=== PATIENT | male | born 1985 | race Caucasian/White ===

== ENCOUNTER 2017-01-06 19:19 | Inpatient (IN) | payer BC ==
[2017-01-06 20:04] LABS: Hematocrit 46 % (42-52); Hemoglobin 15.5 g/dl (14.0-18.0); Mean Corpuscular HGB Conc 34 g/dl (31-36); Mean Corpuscular Hemoglobin 30 pg (27-31); Mean Corpuscular Volume 89 fL (80-94); Mean Platelet Volume 8 um3 (7.4-10.4); Red Blood Count 5.13 10^6/ul (4.0-5.4); Red Cell Distribution Width 13 % (10.5-15); White Blood Count 9.3 10^3/ul (3.5-10.8)
[2017-01-06 20:08] LABS: Urine Bilirubin Negative (Negative); Urine Glucose Negative (Negative); Urine Nitrite Negative (Negative)
[2017-01-06 20:20] LABS: ALT 40 U/L (7-52); AST 27 U/L (13-39); Albumin 4.8 g/dL (3.2-5.2); Alkaline Phosphatase 57 U/L (34-104); Anion Gap 11 mmol/L (2-11); Blood Urea Nitrogen 16 mg/dL (6-24); CO2 Carbon Dioxide 24 mmol/L (22-32); Calcium 9.9 mg/dL (8.6-10.3); Chloride 102 mmol/L (101-111); EGFR African American 81.8 (>60); EGFR Non-African American 63.6 (>60); Globulin 2.8 g/dL (2-4); Glucose 94 mg/dL (70-100); Potassium 3.8 mmol/L (3.5-5.0); Sodium 137 mmol/L (133-145); Total Protein 7.6 g/dL (6.4-8.9)
[2017-01-06 20:29] LABS: Acetaminophen < 15 mcg/mL; Alcohol < 10 mg/dL (<10); Salicylate < 2.50 mg/dL (<30)
[2017-01-06 20:29] LABS: Benzodiazepine Urine Screen None Detected (None Detect)
[2017-01-06 20:37] LABS: TSH (Thyroid Stimulating Horm) 1.97 mcIU/mL (0.34-5.60)
--- NOTE | 2017-01-07 01:42 | ED ---
Kota Page Angela, scribed for Jing Shankar MD on 01/06/17 at 1941 . Psychiatric Complaint - HPI Summary HPI Summary: This pt is a 31 y/o male BIBA presenting to [facility] c/o depression x2-3 weeks, with a SI plan today. Pt reports SI and has a plan but decided to call the [facility]. Pt states that he has been recently more depressed due to of her grandmother recently. He states he is under stress. Pt denies owing any guns at home. He states he lives with his , she is in [place] and works as a nurse. Pt notes drinking alcohol once to twice per week but denies drug use. - History Of Current Complaint Chief Complaint: EDMentalHealth Time Seen by Provider: 01/06/17 19:31 Hx Obtained From: Patient Onset/Duration: Lasting Weeks Timing: Constant Character: Depressed Aggravating Factor(s): Recent Stress, Other - of grandmother Has Suicidal: Reports: Thoughts, With A Plan Has Homicidal: Denies: Thoughts, With A Plan PMH/Surg Hx/FS Hx/Imm Hx Endocrine/Hematology History: Denies: Hx Diabetes Cardiovascular History: Denies: Hx Hypertension Psychiatric History: Reports: Hx Anxiety, Hx Depression Infectious Disease History: No Infectious Disease History: Denies: Traveled Outside the US in Last 30 Days - Family History Known Family History: Positive: Other - depression - Social History 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 [employer] Alcohol Use: Weekly Substance Use Type: Reports: None Hx Tobacco Use: No Smoking Status (MU): Never Smoked Tobacco Review of Systems Negative: Fever, Chills Eyes: Negative ENT: Negative Negative: Palpitations, Chest Pain Negative: Shortness Of Breath Negative: Abdominal Pain Genitourinary: Negative Musculoskeletal: Negative Skin: Negative Negative: Headache, Weakness Positive: Depressed All Other Systems Reviewed And Are Negative: Yes Physical Exam Triage Information Reviewed: Yes Vital Signs On Initial Exam: Initial Vitals Temp Pulse Resp BP Pulse Ox 97.7 F 89 16 154/92 100 01/06/17 19:23 01/06/17 19:23 01/06/17 19:23 01/06/17 19:23 01/06/17 19:23 Vital Signs Reviewed: Yes Appearance: Positive: Well-Appearing, No Pain Distress Skin: Positive: Warm, Skin Color Reflects Adequate Perfusion, Dry Eyes: Positive: EOMI, ALIDA ENT: Positive: Pharynx normal, TMs normal Neck: Positive: Supple, Nontender Respiratory/Lung Sounds: Positive: Clear to Auscultation, Breath Sounds Present. Negative: Rales, Rhonchi, Wheezes Cardiovascular: Positive: RRR. Negative: Murmur, Rub, Other - gallop Abdomen Description: Positive: Nontender, Soft. Negative: Distended, Guarding, Other: - rebound Bowel Sounds: Positive: Present Musculoskeletal: Positive: Strength/ROM Intact. Negative: Edema Left, Edema Right Neurological: Positive: Sensory/Motor Intact, Alert, Oriented to Person Place, Time, CN Intact II-III Psychiatric: Positive: Depressed Diagnostics - Vital Signs Vital Signs Temp Pulse Resp BP Pulse Ox 01/06/17 19:23 97.7 F 89 16 154/92 100 - Laboratory Lab Results: Lab Results 01/06/17 01/06/17 01/06/17 Range/Units 19:45 19:45 19:55 WBC 9.3 (3.5-10.8) 10^3/ul RBC 5.13 (4.0-5.4) 10^6/ul Hgb 15.5 (14.0-18.0) g/dl Hct 46 (42-52) % MCV 89 (80-94) fL MCH 30 (27-31) pg MCHC 34 (31-36) g/dl RDW 13 (10.5-15) % Plt Count 241 (150-450) 10^3/ul MPV 8 (7.4-10.4) um3 Neut % (Auto) 56.6 (38-83) % Lymph % (Auto) 33.1 (25-47) % Hanson % (Auto) 8.2 (1-9) % Eos % (Auto) 1.5 (0-6) % Baso % (Auto) 0.6 (0-2) % Absolute Neuts (auto) 5.3 (1.5-7.7) 10^3/ul Absolute Lymphs (auto) 3.1 (1.0-4.8) 10^3/ul Absolute Monos (auto) 0.8 (0-0.8) 10^3/ul Absolute Eos (auto) 0.1 (0-0.6) 10^3/ul Absolute Basos (auto) 0.1 (0-0.2) 10^3/ul Absolute Nucleated RBC 0.01 10^3/ul Nucleated RBC % 0.1 Sodium 137 (133-145) mmol/L Potassium 3.8 (3.5-5.0) mmol/L Chloride 102 (101-111) mmol/L Carbon Dioxide 24 (22-32) mmol/L Anion Gap 11 (2-11) mmol/L BUN 16 (6-24) mg/dL Creatinine 1.33 H (0.67-1.17) mg/dL Est GFR ( Amer) 81.8 (>60) Est GFR (Non-Af Amer) 63.6 (>60) BUN/Creatinine Ratio 12.0 (8-20) Glucose 94 (70-100) mg/dL Calcium 9.9 (8.6-10.3) mg/dL Total Bilirubin 0.50 (0.2-1.0) mg/dL AST 27 (13-39) U/L ALT 40 (7-52) U/L Alkaline Phosphatase 57 (34-104) U/L Total Protein 7.6 (6.4-8.9) g/dL Albumin 4.8 (3.2-5.2) g/dL Globulin 2.8 (2-4) g/dL Albumin/Globulin Ratio 1.7 (1-3) TSH 1.97 (0.34-5.60) mcIU/mL Urine Color Urine Appearance Urine pH (5-9) Ur Specific [place] (1.010-1.030) Urine Protein (Negative) Urine Ketones (Negative) Urine Blood (Negative) Urine Nitrate (Negative) Urine Bilirubin (Negative) Urine Urobilinogen (Negative) Ur Leukocyte Esterase (Negative) Urine Glucose (Negative) Salicylates < 2.50 (<30) mg/dL Urine Opiates Screen None detected (None Detect) Acetaminophen < 15 mcg/mL Ur Barbiturates Screen None detected (None Detect) Ur Phencyclidine Scrn None detected (None Detect) Ur Amphetamines Screen None detected (None Detect) U Benzodiazepines Scrn None detected (None Detect) Urine Cocaine Screen None detected (None Detect) U Cannabinoids Screen None detected (None Detect) Serum Alcohol < 10 (<10) mg/dL 01/06/17 Range/Units 19:55 WBC (3.5-10.8) 10^3/ul RBC (4.0-5.4) 10^6/ul Hgb (14.0-18.0) g/dl Hct (42-52) % MCV (80-94) fL MCH (27-31) pg MCHC (31-36) g/dl RDW (10.5-15) % Plt Count (150-450) 10^3/ul MPV (7.4-10.4) um3 Neut % (Auto) (38-83) % Lymph % (Auto) (25-47) % Hanson % (Auto) (1-9) % Eos % (Auto) (0-6) % Baso % (Auto) (0-2) % Absolute Neuts (auto) (1.5-7.7) 10^3/ul Absolute Lymphs (auto) (1.0-4.8) 10^3/ul Absolute Monos (auto) (0-0.8) 10^3/ul Absolute Eos (auto) (0-0.6) 10^3/ul Absolute Basos (auto) (0-0.2) 10^3/ul Absolute Nucleated RBC 10^3/ul Nucleated RBC % Sodium (133-145) mmol/L Potassium (3.5-5.0) mmol/L Chloride (101-111) mmol/L Carbon Dioxide (22-32) mmol/L Anion Gap (2-11) mmol/L BUN (6-24) mg/dL Creatinine (0.67-1.17) mg/dL Est GFR ( Amer) (>60) Est GFR (Non-Af Amer) (>60) BUN/Creatinine Ratio (8-20) Glucose (70-100) mg/dL Calcium (8.6-10.3) mg/dL Total Bilirubin (0.2-1.0) mg/dL AST (13-39) U/L ALT (7-52) U/L Alkaline Phosphatase (34-104) U/L Total Protein (6.4-8.9) g/dL Albumin (3.2-5.2) g/dL Globulin (2-4) g/dL Albumin/Globulin Ratio (1-3) TSH (0.34-5.60) mcIU/mL Urine Color Yellow Urine Appearance Clear Urine pH 6.0 (5-9) Ur Specific [place] 1.014 (1.010-1.030) Urine Protein Negative (Negative) Urine Ketones Trace H (Negative) Urine Blood Negative (Negative) Urine Nitrate Negative (Negative) Urine Bilirubin Negative (Negative) Urine Urobilinogen Negative (Negative) Ur Leukocyte Esterase Negative (Negative) Urine Glucose Negative (Negative) Salicylates (<30) mg/dL Urine Opiates Screen (None Detect) Acetaminophen mcg/mL Ur Barbiturates Screen (None Detect) Ur Phencyclidine Scrn (None Detect) Ur Amphetamines Screen (None Detect) U Benzodiazepines Scrn (None Detect) Urine Cocaine Screen (None Detect) U Cannabinoids Screen (None Detect) Serum Alcohol (<10) mg/dL Result Diagrams: 01/06/17 19:45 01/06/17 19:45 Lab Statement: Any lab studies that have been ordered have been reviewed, and results considered in the medical decision making process. Course/Dx - Course Course Of Treatment: pt with depression seen by mental health admitted in stable condition - Differential Dx/Clinical Impression Provider Diagnosis: Depression Discharge - Discharge Plan Condition: Stable Disposition: ADMITTED TO [facility] Referrals: No Primary Care Phys,NOPCP [Primary Care Provider] - The documentation as recorded by the Kota black Angela accurately reflects the service I personally performed and the decisions made by me, Jing Shankar MD.
[2017-01-07] MEDS ORDERED: Al Hydrox/Mg Hydrox/Simet LIQ* 30 ML UDC PO PRN (02:01)
[2017-01-07] MEDS ORDERED: Acetaminophen TAB* 325 MG PO PRN (02:01)
[2017-01-07] MEDS: Cetirizine* 10 MG TAB PO SCH (08:31)
[2017-01-07] MEDS: Fluticasone NASAL SPRAY 50MCG* 16 gm SPRAY BTL BOTH NARES SCH (08:31)
[2017-01-07] MEDS: Vitamin THERAPEUTIC TAB PO SCH (08:31)
[2017-01-07] MEDS ORDERED: Propranolol TAB* 10 MG PO PRN (11:30)
[2017-01-07] MEDS: FLUoxetine CAP* 20 MG PO SCH (12:03)
--- NOTE | 2017-01-07 16:04 | HP ---
DATE OF ADMISSION: 01/06/2017. SUPERVISING PSYCHIATRIST: Dr. Erick Lama * (dictated by LYDIA Jc ). JUSTIFICATION FOR ADMISSION: The patient reports increased depressive symptoms and vague suicidal ideation. He called the [facility] crisis line because he was tempted to harm himself and presented voluntarily to the emergency department. 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 He reports a history of increased depression symptoms since late this summer. He reports decreased energy, depressed mood, excessive guilt, difficulty falling asleep and decreased appetite. He endorses anxiety which is new for him. He states that he is anxious when presenting to students and crowds , and endorses generalized worry and decreased concentration. He went to [facility] and reported to the counselor that he recently punched a mirror and used a shard of glass to cut himself. He reports a history of self-harm and punching himself when upset in elementary and high school. He denies suicide attempts. He denies a history of violence or aggression. He reports he started graduate courses at [employer] in the Fall of 2015, he is pursuing his Masters in Industry and Labor relations, and reports that this is "going great" and denies academic problems. He states he has a tendency or over think and considers himself a perfectionist. He denies OCD symptoms. He denies eating disorder symptoms. He denies A/V hallucinations. He denies a history of manic or hypomanic periods. PAST PSYCHIATRIC HISTORY: He states he saw a psychologist and a counselor in high school. He denies prior psychiatric hospitalizations. He denies prior antidepressant or medications. He states that he was prescribed Clonazepam briefly while living in [place]. TRAUMA/ABUSE HISTORY: His grandmother recently. He was very close to her. He denies other trauma or abuse. PAST MEDICAL HISTORY: Seasonal allergies, eczema, asthma, rhabdomyolysis. He does not have a current primary care provider. He states that he has an appointment with a new provider upcoming in January; he does not recall the name of this person. He had an intake with psychiatric nurse practitioner Otto Kessler yesterday. She prescribed Viibryd and Propranolol, but he has not picked these up from the pharmacy yet. PAST SURGICAL HISTORY: Arthroscopy and surgical repair when a log crushed his leg. ALLERGIES: CEPHALOSPORINS, SULFA ANTIBIOTICS. FAMILY PSYCHIATRIC HISTORY: Anxiety in his mother. SOCIAL HISTORY: Boston states that he is primarily from [place], but he has moved around a lot. He has a twin brother named Phi who lives at home with his parents in [place] and he has a 24-year-old brother in [place] who is studying [employer] at [employer] as a PhD candidate. His undergrad is in Philosophy from [employer] in [place]. Prior to moving to [place], he was living in [place] and working for [employer]. He and his , Santa, in April 2014. She is a labor and delivery nurse at [employer]. He reports one alcoholic drink per week and denies other substance use. Boston denies or legal history. REVIEW OF SYSTEMS: Constitutional: Negative. Eyes: Negative. ENT: Negative. Cardiovascular: Negative. Respiratory: Negative. Gastrointestinal : Negative. Genitourinary: Negative. Musculoskeletal: Negative. Other other systems reviewed and are negative. PHYSICAL EXAMINATION APPEARANCE: Positive, well-appearing, no pain or distress. SKIN: Warm, dry, reflects adequate perfusion. MOST RECENT VITAL SIGNS: Temperature 98.9, pulse 79, respiration rate 16, O2 saturation 99 percent, blood pressure 120/76. Height 5'9", weight 182. HEENT: Eyes: EOMI, PERRLA. ENT: Pharynx normal. Tympanic membranes normal. NECK: Supple, nontender. RESPIRATORY: Clear to auscultation. Breath sounds present. CARDIOVASCULAR: Heart RRR. Pulses present bilaterally on upper and lower extremities. ABDOMEN: Soft, nontender. Bowel sounds present in all four quadrants. MUSCULOSKELETAL: Strength and ROM intact. NEUROLOGIC: Sensory motor intact. Alert and oriented times three. Cranial nerves intact II through XII. MENTAL STATUS EXAM: Boston is a 31-year-old male, moderate height and build, who appears stated age. He is adequately groomed, dressed in his own clothing. He is cooperative with interview and answers questions fully. He is alert and oriented times three. His concentration is fair. Memory is 3/3. His mood is "overwhelmed." Affect is blunted. Speech is normal rate, rhythm and volume , articulate. Thought process logical, coherent, mild thought poverty noted. Content of thought positive for vague SI. Denies phobias, rituals, delusions, or preoccupations. His insight is good. His judgment is good. His fund of knowledge is excellent. DIAGNOSES: AXIS I: Unspecified depressive disorder, bereavement, generalized anxiety disorder. AXIS II: Deferred. AXIS III: Asthma, mild, seasonal allergies, eczema. AXIS IV: Stressors related to recent of his grandmother and pressures of work and graduate studies. AXIS V: 55. PLAN: Admit to Adult Behavioral Services Unit on voluntary status. Code status is full. Place on 15 minute checks for safety. The patient is encouraged to participate in supportive milieu and individual sessions and psychoeducational groups. The patient is agreeable to a trial of Fluoxetine as Viibryd is non- formulary and likely difficult to be covered by insurance after discharge. Will start Propranolol b.i.d. for anxiety and Trazodone as needed for sleep. Will monitor for mood and thought content. Estimated length of stay is three to five days. Discharge planning will involve family involvement and outpatient providers. YARED FAN NP [id number]/[facility] #: [id number] JASON
[2017-01-07] MEDS ORDERED: traZODone TAB* 50 MG TAB PO PRN (21:00)
[2017-01-07] MEDS: diPHENhydraMINE PO* 50 MG PO PRN (21:27)
[2017-01-08] MEDS: FLUoxetine CAP* 20 MG PO SCH (09:04)
[2017-01-08] MEDS: Cetirizine* 10 MG TAB PO SCH (09:04)
[2017-01-08] MEDS: Fluticasone NASAL SPRAY 50MCG* 16 gm SPRAY BTL BOTH NARES SCH (09:04)
[2017-01-08] MEDS: Vitamin THERAPEUTIC TAB PO SCH (09:06)
--- NOTE | 2017-01-08 12:56 | PN ---
Subjective - Subjective Service Type: 31761 Hosp care 15 min low complexity Subjective: Dino is seen for weekend coverage. He is calm and polite. Feels less anxious and continues to deny any further SI. Patient is tolerating fluoxetine well with no noticeable untoward effects. He asks several future-oriented questions such as whether I can recommend a good psychiatrist or psychotherapist in the community. He has been going to groups and is visible on the unit; safe on all checks. Objective - Appearance Appearance: Well Developed/Nourished Dysmorphic Features: No Hygiene: Normal Grooming: Well Kept - Behavior Psychomotor Activities: Normal Exhibits Abnormal Movement: No - Attitude and Relatedness Attitude and Relatedness: Cooperative Eye Contact: Good - Speech Quality: Unpressured Latencies: Normal Quantity: Appropriate - Mood Patient's Decription of Mood: "Good" - Affect Observed Affect: Good Affect Consistent with: Euthymia - Thought Process Patient's Thought Process: Coherent Thought Content: No Passive Wish, No Suicidal Planning, No Homicidal Ideation, No Paranoid Ideation - Sensorium Experiencing Hallucinations: No, Sensorium is Clear Type of Hallucinations: Visual: No, Auditory: No, Command: No - Level of Consciousness Level of Consciousness: Alert Orientation: Yes Intact, Yes Orientated to Time, Yes Orientated to Place, Yes Orientated to Person - Impulse Control Impulse Control: Intact - Insight and Judgement Insight and Judgement: Good - Group Participation Particating in Group Activities: Yes - Medication Management Medication Management Adherence: Yes Assessment - Assessment Merits Inpatient Hospitalization: Consolidate Improvements, Pending Safe DC Plan Inpatient DSM-IV Dx: Major Depressive DO, single episode, severe without psychotic features Clinical Impression: 31 y.o. 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 Plan - Plan Treatment Plan: Name: DINO OTERO Birthdate: 1985 [id number] Patient started on scheduled fluoxetine and prn propranolol for anxiety. Adjusting to unit nicely. Denies SI. Future-oriented and wanting referral to outpatient resources. Continue to treat inpatient. Continued Medication Management: Start Medication Medications: Current Medications Acetaminophen (Tylenol Tab*) 650 mg PO Q4H PRN PRN Reason: PAIN or TEMP > 101 F Al Hydrox/Mg Hydrox/Simethicone (Maalox Plus*) 30 ml PO Q4H PRN PRN Reason: INDIGESTION Cetirizine HCl (Zyrtec*) 10 mg PO DAILY [facility] Last Admin: 01/08/17 09:04 Dose: 10 mg Diphenhydramine HCl (Benadryl Po*) 50 mg PO BEDTIME PRN PRN Reason: INSOMNIA/ALLERGIES Last Admin: 01/07/17 21:27 Dose: 50 mg Fluoxetine HCl (Prozac Cap*) 20 mg PO DAILY [facility] Last Admin: 01/08/17 09:04 Dose: 20 mg Fluticasone Propionate (Flonase Nasal [place] 50mcg*) 2 spray BOTH NARES DAILY [facility] Last Admin: 01/08/17 09:04 Dose: 2 spray Multivitamins (Theragran Tab*) 1 tab PO DAILY [facility] Last Admin: 01/08/17 09:06 Dose: Not Given Propranolol HCl (Inderal Tab*) 10 mg PO BID PRN PRN Reason: ANXIETY Last Admin: 01/07/17 12:03 Dose: 10 mg Trazodone HCl (Desyrel Tab*) 50 mg PO BEDTIME PRN PRN Reason: INSOMNIA - Discharge Plan Discharge Plan: Inpatient Hospitalization
[2017-01-08] MEDS: diPHENhydraMINE PO* 50 MG PO PRN (20:34)
[2017-01-09] MEDS: Cetirizine* 10 MG TAB PO SCH (09:03)
[2017-01-09] MEDS: FLUoxetine CAP* 20 MG PO SCH (09:03)
[2017-01-09] MEDS: Fluticasone NASAL SPRAY 50MCG* 16 gm SPRAY BTL BOTH NARES SCH (09:03)
[2017-01-09] MEDS: Vitamin THERAPEUTIC TAB PO SCH (09:03)
[2017-01-09] MEDS: diPHENhydraMINE PO* 50 MG PO PRN (20:53)
[2017-01-10 07:49] VITALS: BP 116/65
[2017-01-10] MEDS: Fluticasone NASAL SPRAY 50MCG* 16 gm SPRAY BTL BOTH NARES SCH (08:01)
[2017-01-10] MEDS: FLUoxetine CAP* 20 MG PO SCH (08:01)
[2017-01-10] MEDS: Cetirizine* 10 MG TAB PO SCH (08:01)
[2017-01-10] MEDS: Vitamin THERAPEUTIC TAB PO SCH (08:01)
--- NOTE | 2017-01-10 11:31 | PN ---
[facility]: Group Therapy Note - Service Type Service Type: 15995 Group Psychotherapy - Cognitive Behavioral Group Therapy ( CBT):Patient was attentive and participatory in CBT programming this morning, and remained in good behavioral control. Patient expressed positive insights regarding relevant treatment interventions and goals.
--- NOTE | 2017-01-10 14:35 | DS ---
CC: Otto Kessler NP* DATE OF ADMISSION: 01/06/2017. DATE OF DISCHARGE: 01/10/2017. SUPERVISING PSYCHIATRIST: Dr. Erick Lama* (dictated by LYDIA Cameron) . DISCHARGE DIAGNOSES: AXIS I: Major depressive disorder and social anxiety disorder. AXIS II: Deferred. AXIS III: asthma, seasonal allergies, eczema AXIS IV: Stressors related to graduate studies and personal relationships. AXIS V: 70. CONDITION AT THE TIME OF DISCHARGE: Improved. The patient reports he has benefited from hospitalization by being able to reorient himself and plan to decrease his workload and extracurricular activities. He states he is looking forward to having more time to himself and also to focus on his marriage. He identifies re-establishing a routine of coping skills. He reports that he had much family support and visitors including his card dealer while on the unit. He denies suicidal ideation. He is able to exhibit forward thinking and planning. His is present for discharge and she is agreeable to discharge planning. Questions were answered by myself and discharge instructions were given by nursing staff. MENTAL STATUS EXAM: The patient is a 31-year-old male, moderate height and build, who appears stated age. He is adequately groomed, dressed in his own clothing. He is cooperative and talkative. He is alert and oriented times three. His concentration is good. His memory is 3/3. His mood is "great." Affect is full. Speech is normal rate, rhythm and volume, and articulate. Thought process is logical, coherent, and goal-directed. Content of thought is negative for SI or SIB, preoccupations, or delusions. His insight is good. His judgment is good. His fund of knowledge is excellent. DISCHARGE INSTRUCTIONS TO PATIENT: A. Medications: The patient will continue Viibryd as prescribed by his outpatient practitioner and Propranolol. Both of these are ready for pick-up at [facility]. This advertising copywriter verified and sent an electronic prescription for Trazodone 50 mg p.o. at bedtime prn insomnia. B. Diet: Regular. C. Activity: Ambulation as tolerated. Tobacco cessation not applicable and there are no pending labs or diagnostic studies at the time of discharge. D. Follow-up care: The patient has an appointment with his psychiatric nurse practitioner, Otto Kessler this , the , at 3:00 p.m. shoe lay out planner Sofia Pat and Otto will coordinate in regards to identify an outpatient therapist in the community for [place]. He will follow- up with [id number] as needed for any medical issues. HOSPITAL COURSE: A. Reason for admission: The patient reported increased depressive symptoms and vague suicidal ideation. He called the [facility] [facility] crisis line because he was tempted to harm himself and presented voluntarily to the emergency department. B. Psychiatric treatment rendered: The patient was admitted to the Adult Behavioral Services on voluntary status. Code status was full. He was placed on 15 minute checks for safety. He was encouraged to participate in intensive milieu, individual sessions, and psychoeducational groups. The patient was agreeable to a trial of Fluoxetine. He had recently been prescribed Viibryd for the first time by his outpatient provider. This medication is non-formulary , so Fluoxetine was used as a substitution by this advertising copywriter. He was offered Propranolol b.i.d. prn anxiety, but did not take this medicine while hospitalized. He is encouraged to use as outpatient for performance anxiety and teaching requirements. He also trialed Trazodone as needed for sleep and reported efficacy. The patient fully participated in unit programming and he was pleasant and in behavioral control. He reported a positive effect from being in the hospital. He states he is also able to identify things in his life for which he is grateful. Observation was decreased to every 30 minutes and he was allowed staff pass and computer privileges. The patient requested to be discharged today, Tuesday, and his was in agreement with discharge plan. He is encouraged to return to the ED should symptoms worsen. Discharge planning included coordination with his psychiatric nurse practitioner, Otto Kessler. He will also work with her to identify a local therapist. The patient and were given discharge instructions by nursing staff and he left the unit with his . LYDIA CAMERON [id number]/[facility] #: [id number] JASON
== END 2017-01-10 12:35 | disposition home or self-care (01) | DRG 751 ==
LOC: ED 19:19 → BSU 01-07 01:40
PROVIDERS: ADMIT Psychiatry & Neurology Psychiatry; ATTEND Psychiatry & Neurology Psychiatry
DX: F32.2 Major depressive disorder, single episode, severe without psychotic features (principal); F40.10 Social phobia, unspecified; J45.909 Unspecified asthma, uncomplicated; L30.9 Dermatitis, unspecified
CPT/HCPCS: 36415; 80053; 80307; 80320; 80329; 81003; 84443; 85025; 90853; 99222; 99231; 99238; A9270-GY; G0480

== ENCOUNTER 2017-07-08 18:06 | Emergency (ER) | payer BC ==
[2017-07-08 18:20] VITALS: BP 123/84
--- NOTE | 2017-07-08 18:56 | UC ---
Abdominal Pain Male HPI - HPI Summary HPI Summary: c/o nausea and diarrhea after eating at the cafeteria on Tuesday night, He states he did not vomit, no fever and symptoms were improving on Tuesday but on he recurred with diarrhea. He still had loose stools this morning but states he took coffee, other than that he has been following a BRAT diet. He denies nausea, mucus or blood in stool. He noticed a small spotting in the toilet paper as he was wiping. - History of Current Complaint Chief Complaint: UCGI Stated Complaint: DIARRHEA,STOMACH DISCOMFORT Time Seen by Provider: 07/08/17 18:37 Hx Obtained From: Patient Onset/Duration: Sudden Onset, Lasting Days Severity Initially: Moderate Severity Currently: Mild Pain Intensity: 2 Location: Diffuse Radiates: No Character: Cramping Alleviating Factor(s): Spontaneous Resolution, Other - resolved then recurred a day ago, colics resolve with BM Associated Signs And Symptoms: Positive: Diarrhea - Risk Factors Testicular Torsion: Negative Cardiac Risk Factors: Negative - Allergies/Home Medications Allergies/Adverse Reactions: Allergies Allergy/AdvReac Type Severity Reaction Status Date / Time Cephalosporins Allergy Difficulty Verified 07/08/17 18:20 Breathing Sulfa (Sulfonamide Allergy SEE Verified 07/08/17 18:20 Antibiotics) COMMENTS Home Medications: Home Medications Bismuth Subsalicylate [Pepto-Bismol Max Strength] 525 mg PO PRN 07/08/17 [ History] Multivitamin [Multivitamins] 1 cap PO DAILY 07/08/17 [History Confirmed 07/08/17 ] PMH/Surg Hx/FS Hx/Imm Hx Previously Healthy: Yes - Surgical History Surgical History: Yes Surgery Procedure, Year, and Place: ANKLE ARTHROSCOPY, RLE SURGERY, CHEST TUBE FOR PNEUMOTHORAX ( ) - Family History Known Family History: Positive: Other - depression - Social History Alcohol Use: Occasionally Substance Use Type: None Smoking Status (MU): Never Smoked Tobacco - Immunization History Most Recent Influenza Vaccination: Unknown Most Recent Pneumonia Vaccination: Unknown Review of Systems Gastrointestinal: Diarrhea, Nausea All Other Systems Reviewed And Are Negative: Yes Physical Exam Triage Information Reviewed: Yes Appearance: Well-Appearing Vital Signs: Initial Vital Signs Temp 97.5 F 07/08/17 18:15 Pulse 85 07/08/17 18:15 Resp 16 07/08/17 18:15 BP 123/84 07/08/17 18:15 Pulse Ox 97 07/08/17 18:15 Vital Signs Reviewed: Yes Eyes: Positive: Conjunctiva Clear ENT: Positive: Pharynx normal, TMs normal, Uvula midline Dental Exam: Normal Neck: Positive: Supple, Nontender, No Lymphadenopathy Respiratory: Positive: Chest non-tender, Lungs clear, Normal breath sounds, No respiratory distress Cardiovascular: Positive: RRR, No Murmur, Pulses Normal, Brisk Capillary Refill Abdomen Description: Positive: Nontender, No Organomegaly, Soft Bowel Sounds: Positive: Present Musculoskeletal: Positive: Strength Intact, ROM Intact Skin Exam: Normal Abd Pain Male Course/Dx - Course Course Of Treatment: Patient has history of nausea and diarrhea after meal, most possibly attributable to food poisoning according to timeline. Diarrhea recurred yesterday after but symptoms have improved ever since, with patient being well hydrated at the moment. Recurrence possibly due to Viral gastroenteritis. Continue oral hydration, avoid caffeine, limit dairy with exception of yogurt, food as tolerated. - Differential Dx/Clinical Impression Provider Diagnoses: History of food poisoning. Viral gastroenteritis Discharge - Discharge Plan Condition: Stable Disposition: HOME Patient Education Materials: Gastroenteritis (ED), Electrolyte Supplement (By mouth), Dehydration (ED) Referrals: No Primary Care Phys,NOPCP [Primary Care Provider] - [facility] [place] [facility] [Outside]
== END 2017-07-08 18:55 | disposition home or self-care (01) ==
LOC: UCEAST 18:06
DX: A08.4 Viral intestinal infection, unspecified (principal); Z88.2 Allergy status to sulfonamides
CPT/HCPCS: 99211; G0463